=== PATIENT | female | born 1995 | race African-American/Black ===

== ENCOUNTER 2022-11-12 13:29 | Inpatient (IN) | payer OTHER ==
[~2022-11-12] VITALS: Ht 154.9 cm; Wt 48.0 kg
[2022-11-12] MEDS ORDERED: RisperiDONE 1 MG TABLET PO ONE (14:15)
[2022-11-12 15:18] LABS: AMPHET/METH SCREEN,URINE NEGATIVE (NEGATIVE); BARBITURATE SCREEN, URINE NEGATIVE (NEGATIVE); BENZODIAZEPINES SCREEN,URINE NEGATIVE (NEGATIVE); CANNABINOID SCREEN,URINE NEGATIVE (NEGATIVE); COCAINE SCREEN,URINE NEGATIVE (NEGATIVE); METHADONE SCREEN, URINE NEGATIVE (NEGATIVE); OPIATE SCREEN,URINE NEGATIVE (NEGATIVE)
[2022-11-12 15:20] LABS: PHENCYCLIDINE SCREEN,URINE NEGATIVE (NEGATIVE)
[2022-11-12] MEDS: IBUPROFEN 600 MG TABLET PO ONE ×2 (16:04→17:26)
[2022-11-12 17:13] LABS: COVID AG,FIA SOURCE NASOPHARYNGEAL
[2022-11-12 18:41] LABS: ANION GAP 6 mmol/L (8-16); CALCIUM, TOTAL 9.7 mg/dL (8.8-10.5); CARBON DIOXIDE 30 mmol/L (22-29); CHLORIDE 100 mmol/L (98-107); GLUCOSE,RANDOM 113 mg/dL (70-110); POTASSIUM 3.8 mmol/L (3.5-5.1); SODIUM SERUM 136 mmol/L (136-145); UREA NITROGEN, BLOOD 14 mg/dL (7-18)
[2022-11-12 18:49] LABS: GLOMERULAR FILTR. RATE CALC > 60 mL/min (>60)
[2022-11-12 18:56] LABS: ALANINE AMINOTRANSFERASE 19 U/L (12-78); ALBUMIN 4.7 g/dL (3.4-5.0); ALKALINE PHOSPHATASE 73 U/L (46-116); ASPARTATE AMINOTRANSFERASE 18 U/L (15-37); BILIRUBIN,TOTAL 0.5 mg/dL (0.1-1.0); TOTAL PROTEIN, SERUM 8.8 g/dL (6.4-8.2)
[2022-11-12 21:26] LABS: HCG,QUANTITATIVE < 1 mIU/mL (0-6)
[2022-11-12] MEDS ORDERED: ZOLPIDEM TARTRATE 10 MG TABLET PO PRN (22:00)
[2022-11-12] MEDS ORDERED: HALOPERIDOL 5 MG TABLET PO PRN (22:00)
[2022-11-12] MEDS ORDERED: LORazepam 2 MG TABLET PO PRN (22:00)
[2022-11-13 01:25] VITALS: BP 127/79
[2022-11-13] MEDS ORDERED: PETROLATUM,WHITE 28 GM JELLY TP PRN (05:45)
[2022-11-13] MEDS ORDERED: BENZOCAINE/MENTHOL LOZENGE PO PRN (05:45)
[2022-11-13] MEDS ORDERED: ONDANSETRON HCL 4 MG TABLET PO PRN (05:45)
[2022-11-13] MEDS ORDERED: MAG HYDROX/AL HYDROX/SIMETH ES 30 ML SUSPENSION UDCUP PO PRN (05:45)
[2022-11-13] MEDS ORDERED: OMEPRAZOLE 20 MG CAPSULE PO PRN (05:45)
[2022-11-13] MEDS ORDERED: MAGNESIUM HYDROXIDE SUSPENSION 30 ML UDCUP PO PRN (05:45)
[2022-11-13] MEDS ORDERED: IBUPROFEN 600 MG TABLET PO PRN (05:45)
[2022-11-13] MEDS ORDERED: ALBUTEROL SULFATE HFA 90 MCG/PUFF 8 GM INHALER IH PRN (05:45)
[2022-11-13] MEDS ORDERED: CloNIDine HCL 0.1 MG TABLET PO PRN (05:45)
[2022-11-13] MEDS ORDERED: DOCUSATE SODIUM 100 MG CAPSULE PO PRN (05:45)
[2022-11-13] MEDS ORDERED: LOPERAMIDE HCL 2 MG CAPSULE PO PRN (05:45)
[2022-11-13] MEDS ORDERED: BACITRACIN 28 GM OINTMENT TP PRN (05:45)
[2022-11-13] MEDS ORDERED: ACETAMINOPHEN 325 MG TABLET PO PRN (05:45)
[2022-11-13 08:39] VITALS: BP 124/79
[2022-11-13] MEDS: HYDROCORTISONE 1% 30 GM CREAM TP SCH ×2 (09:15→17:07)
[2022-11-14 08:00] VITALS: BP 110/77
[2022-11-14] MEDS: HYDROCORTISONE 1% 30 GM CREAM TP SCH ×2 (08:43→16:20)
[2022-11-14] MEDS: RisperiDONE 3 MG TABLET PO SCH ×2 (08:51→16:20)
[2022-11-15 08:24] VITALS: BP 116/76
[2022-11-15] MEDS: RisperiDONE 3 MG TABLET PO SCH (09:00)
[2022-11-15] MEDS: HYDROCORTISONE 1% 30 GM CREAM TP SCH (09:06)
[2022-11-15] MEDS ORDERED: RISP3TAB63 PO (15:34)
== END 2022-11-15 18:10 | disposition home or self-care (01) | DRG 885 ==
LOC: EMS 13:47 → B2S 22:00
PROVIDERS: ADMIT Psychiatry & Neurology Psychiatry; ATTEND Psychiatry & Neurology Psychiatry
DX: F31.9 Bipolar disorder, unspecified (principal); F20.9 Schizophrenia, unspecified; F41.9 Anxiety disorder, unspecified; G47.00 Insomnia, unspecified; K59.00 Constipation, unspecified; Z20.822 Contact with and (suspected) exposure to COVID-19
CPT/HCPCS: 80053; 84702; 99285; G0480